=== PATIENT | female | born 1965 | race African-American/Black ===

== ENCOUNTER 2018-10-14 20:59 | Emergency (ER) | payer OTHER ==
[~2018-10-14] VITALS: Ht 165.1 cm; Wt 91.2 kg
[~2018-10-14 20:59] MED LIST: ALBU8.5H5 INH; HYDR473S47 PO; LORA-186 PO; PRED20TA PO
[2018-10-14 21:03] VITALS: Ht 165.1 cm; Wt 91.2 kg
--- NOTE | 2018-10-14 23:34 | ERD ---
ER Documentation Chief Complaint Chief Complaint R knee pain and a "pop" today HPI 53-year-old female, with history of vitiligo and arthritis, presents to the emergency department, complaining of right knee pain and edema after accidentally twisted her right knee while getting out of the car. The pain is dull, constant, 6/10. The patient has been able to ambulate with a cane. She denies knee erythema, warmth or decreased range of motion. ROS All systems reviewed and are negative except as per history of present illness. Medications Home Meds Active Scripts Hydrocodone/Homatropine Mbr* (Hycodan* Liq) 5 Ml Syrup, 5 ML PO Q4H PRN for COUG H for 7 Days, ML Prov:BRIAN FLORENCE MD 05/20/15 Prednisone* (Prednisone*) 20 Mg Tab, 40 MG PO DAILY for 4 Days, TAB Prov:BRIAN FLORENCE MD 05/20/15 Albuterol Sulfate* (Albuterol Sulfate* HFA) 8.5 Gm Hfa.aer.ad, 1-2 PUFF INH Q4 PRN for SHORTNESS OF BREATH, #1 EA Prov:BRIAN FLORENCE MD 05/20/15 Reported Medications Loratadine* (Claritin*) 10 Mg Tablet, 10 MG PO DAILY, TAB 05/20/15 Allergies Allergies: Coded Allergies: Penicillins (Verified Allergy, Unknown, 05/20/15) PMhx/Soc Medical and Surgical Hx: pt denies Surgical Hx History of Surgery: No Anesthesia Reaction: No Hx Neurological Disorder: No Hx Respiratory Disorders: Yes (asthma) Hx Cardiac Disorders: No Hx Psychiatric Problems: No Hx Miscellaneous Medical Probl: No Hx Alcohol Use: Yes (occassionally) Hx Substance Use: No Hx Tobacco Use: Yes Smoking Status: Current some day smoker FmHx Family History: diabetes; No coronary disease Physical Exam Vitals Vital Signs Date Temp Pulse Resp B/P (MAP) Pulse Ox O2 O2 Flow FiO2 Time Delivery Rate 10/14/18 97.2 76 20 126/67 99 21:03 (86) Physical Exam Const: No acute distress Head: Atraumatic Eyes: Normal Conjunctiva ENT: Normal External Ears, Nose and Mouth. Neck: Full range of motion. No meningismus. Resp: Clear to auscultation bilaterally Cardio: Regular rate and rhythm, no murmurs Abd: Soft, non tender, non distended. Normal bowel sounds Skin: Distal vitiligo. No petechiae or rashes Back: No midline or flank tenderness Ext: Right knee: Peripatellar edema, tenderness with passive range of motion. Distal neurovascular exam intact. No cyanosis, or edema Neur: Awake and alert Psych: Normal Mood and Affect Procedures/MDM Acute right knee pain: no red flags. Differential diagnosis include but not limited to: Knee contusion, meniscus, tendon/ligament injury, arthritis; low suspicion for fracture, dislocation, septic arthritis. Neurovascular exam grossly intact. no clinical findings suggestive of acute infectious process, no acute deformity, no edema, no rashes. Physical examination and clinical presentation consistent most likely with derangement of the right knee. During the ED course the patient received treatment with knee immobilizer presenting overall improvement of the symptoms. Splint evaluation: Type: Knee immobilizer Location: Right knee Position: good alignment in anatomical position Neurovascular intact The patient was told that elevating the injured part will help reduce pain and swelling. Ice packs can decrease pain and promote healing when applied in the first two days after an injury. The pack should be dry on the outside. Apply it for half an hour three to four times a day. Results and clinical impression discussed with the patient who agrees with management. The patient is stable to be treated outpatient and will be discharged home with recommendations for ice, rest and partial immobilization. NSAIDs 3 times daily for 5 days and close monitoring. The patient was instructed to follow up with the primary care provider in the next 48h. If symptoms persist, worsen or new symptoms develop, then patient should return to the ED immediately. Instructions explained and given to patient with acknowledgment and demonstrated understanding. Disclaimer: Inadvertent spelling and grammatical errors are likely due to EHR/dictation software use and do not reflect on the overall quality of patient care. Also, please note that the electronic time recorded on this note does not necessarily reflect the actual time of the patient encounter. Departure Diagnosis: Primary Impression: Derangement of knee, right Condition: Stable Additional Instructions: Thank you very much for allowing us to participate in your care. Your health and safety is our top priority at [facility]. The evaluation in the emergency department has been done to rule out an acute emergency, therefore, chronic conditions like malignancy or other diseases have not been evaluated; therefore, you need to follow up with a primary care provider in the next 48h. If symptoms persist, worsen or new symptoms develop, then patient should return to the ED immediately. Call your primary care doctor TOMORROW for an appointment during the next 2-4 days and bring all the information provided. Have prescriptions filled and follow precisely the directions on the label. If the symptoms get worse and your provider is unavailable, return to the Emergency Department immediately. VICTORINO STEIN MD Oct 14, 2018 23:34
[2018-10-15] MEDS ORDERED: IBUP-1561 PO (00:08)
[2018-10-15] MEDS ORDERED: ACET325T33 PO (00:08)
[2018-10-15] MEDS ORDERED: IBUPROFEN 200 MG TAB PO ONE (01:30)
[2018-10-15] MEDS ORDERED: ACETAMINOPHEN 325 MG TAB PO ONE (01:30)
== END 2018-10-15 01:50 | disposition home or self-care (01) ==
LOC: FTE 20:59
DX: M23.91 Unspecified internal derangement of right knee (principal); J45.909 Unspecified asthma, uncomplicated; F17.210 Nicotine dependence, cigarettes, uncomplicated
CPT/HCPCS: 29505; Z7502; Z7610